=== PATIENT | female | born 1960 | race Caucasian/White ===

== ENCOUNTER 2017-02-22 12:53 | Inpatient (IN) | payer BC ==
[~2017-02-22] VITALS: Ht 162.5 cm; Wt 103.0 kg
[~2017-02-22 12:53] MED LIST: ANAPROX DS550 MG PO; B121000 MCG/2 IM; CARAFATE1 G1 PO; HYDROCODONE BIT1 T11 PO; IBU-8800 MG PO; LEVAQUIN250 MG PO; MEDROL DOSEPAK4 MG PO; MOTRIN800 MG PO; Motrin,Rufen800 MG PO; NORCO 325 MG-51 TAB PO; NORTRIPTYLINE H10 MG PO; PREDNISONE20 M1 PO; PREVACID30 M1 PO; PREVACID30 MG PO; PRILOSEC10 MG PO; PROAIR HFA8.5 GM INH; PROTONIX40 MG PO; PYRIDIUM200 MG PO; SKELAXIN800 MG PO; TRAMADOL HCL50 MG PO; ULTRAM50 MG PO; VICODIN 500 MG-1 TAB PO; WELLBUTRIN SR150 MG PO; WELLBUTRIN75 MG PO; ZITHROMAX250 MG PO; ZOFRAN4 MG PO; Zofran4 MG PO
[2017-02-22 13:08] VITALS: BP 144/91
[2017-02-22] MEDS ORDERED: LORAZEPAM0.5 MG PO (13:09)
[2017-02-22 13:35] VITALS: BP 125/58
[2017-02-22 13:45] LABS: BASO % 0.3 % (0.0-1.0); EOS # 0.1 10*3/uL (0.0-0.4); EOS % 1.1 % (1.0-4.0); HEMATOCRIT 40.2 % (37.0-47.0); HEMOGLOBIN 12.7 g/dl (12.0-16.0); LYMPH # 1.3 10*3/uL (1.3-4.4); LYMPH % 16.7 % (27.0-41.0); MEAN CELL VOLUME 79.9 fl (81.0-99.0); MEAN CORPUSCULAR HGB 25.2 pg (27.0-31.0); MEAN CORPUSCULAR HGB CONC 31.6 g/dl (33.0-37.0); MEAN PLATELET VOLUME 10.5 fl (9.6-12.3); MONO # 0.5 10*3/uL (0.1-1.0); NEUT # 5.6 10*3/uL (2.3-7.9); NEUT % 74.5 % (47.0-73.0); PLATELET COUNT AUTOMATED 272 10*3/uL (130-400); RED BLOOD COUNT 5.03 10*6/uL (4.10-5.10); RED CELL DISTRI WIDTH 15.6 % (0-14.5); WHITE BLOOD COUNT 7.5 10*3/uL (4.8-10.8)
[2017-02-22 13:52] LABS: BILIRUBIN NEGATIVE (NEGATIVE); BLOOD TRACE-INTACT (NEGATIVE); CLARITY SL CLOUDY (CLEAR); COLOR YELLOW (YELLOW); GLUCOSE NEGATIVE (NEGATIVE); KETONE NEGATIVE (NEGATIVE); LEUKO ESTERASE NEGATIVE (NEGATIVE); NITRITE NEGATIVE (NEGATIVE); PROTEIN NEGATIVE (NEGATIVE)
[2017-02-22 13:54] VITALS: BP 126/81
[2017-02-22 13:59] LABS: ALBUMIN 3.5 gm/dl (3.1-4.5); ALKALINE PHOSPHATASE 123 U/L (45-117); BILIRUBIN, TOTAL 0.5 mg/dl (0.2-1.0); BUN 7 mg/dl (7-24); CARBON DIOXIDE 25 mmol/L (21-32); CHLORIDE 108 mmol/L (98-107); EST GLOM FILT AFRICAN AMERICAN > 60 ml/min; GLUCOSE 95 mg/dL (65-99); POTASSIUM 4.3 mmol/L (3.5-5.1); SGOT/AST 16 IU/L (3-35); SGPT/ALT 22 U/L (12-78); SODIUM 143 mmol/L (136-145)
[2017-02-22 14:02] LABS: BACTERIA TRACE; EPITHELIAL CELLS TNTC; URINE REFLEX COMMENT NO (NO)
[2017-02-22 18:11] VITALS: BP 107/53
[2017-02-22] MEDS ORDERED: COLACE100 MG PO (18:24)
[2017-02-22 20:00] VITALS: BP 107/52
[2017-02-23] VITALS: BP 105/57
[2017-02-23 06:49] LABS: BASO % 0.4 % (0.0-1.0); EOS # 0.1 10*3/uL (0.0-0.4); EOS % 1.7 % (1.0-4.0); HEMATOCRIT 37.7 % (37.0-47.0); HEMOGLOBIN 11.5 g/dl (12.0-16.0); LYMPH # 1.4 10*3/uL (1.3-4.4); LYMPH % 28.8 % (27.0-41.0); MEAN CELL VOLUME 81.8 fl (81.0-99.0); MEAN CORPUSCULAR HGB 24.9 pg (27.0-31.0); MEAN CORPUSCULAR HGB CONC 30.5 g/dl (33.0-37.0); MEAN PLATELET VOLUME 10.1 fl (9.6-12.3); MONO # 0.5 10*3/uL (0.1-1.0); NEUT # 2.8 10*3/uL (2.3-7.9); NEUT % 58.5 % (47.0-73.0); PLATELET COUNT AUTOMATED 221 10*3/uL (130-400); RED BLOOD COUNT 4.61 10*6/uL (4.10-5.10); RED CELL DISTRI WIDTH 15.7 % (0-14.5); WHITE BLOOD COUNT 4.7 10*3/uL (4.8-10.8)
[2017-02-23 07:13] LABS: ALBUMIN 3.1 gm/dl (3.1-4.5); BUN 8 mg/dl (7-24); CARBON DIOXIDE 26 mmol/L (21-32); CHLORIDE 110 mmol/L (98-107); EST GLOM FILT AFRICAN AMERICAN > 60 ml/min; GLUCOSE 85 mg/dL (65-99); MAGNESIUM 2.3 mg/dL (1.5-2.1); POTASSIUM 3.8 mmol/L (3.5-5.1); SGOT/AST 11 IU/L (3-35); SGPT/ALT 19 U/L (12-78); SODIUM 145 mmol/L (136-145)
[2017-02-23 07:23] LABS: ALKALINE PHOSPHATASE 107 U/L (45-117); BILIRUBIN, TOTAL 0.6 mg/dl (0.2-1.0); THYROID STIM HORMONE (HS) 0.843 uIU/ml (0.358-4.75); TOTAL PROTEIN 6.4 gm/dL (6.4-8.2)
[2017-02-23 07:24] LABS: PROTHROMBIN TIME 10.1 SECONDS (9.0-12.4)
[2017-02-23 07:36] LABS: FOLIC ACID 12.22 ng/mL (>5.38)
[2017-02-23 08:31] VITALS: BP 102/52
[2017-02-23 12:07] VITALS: BP 106/62
[2017-02-23 16:00] VITALS: BP 122/78
[2017-02-23 20:00] VITALS: BP 118/56
[2017-02-24] VITALS: BP 133/83
[2017-02-24 06:28] LABS: BASO % 0.4 % (0.0-1.0); EOS # 0.1 10*3/uL (0.0-0.4); EOS % 1.6 % (1.0-4.0); HEMATOCRIT 38.9 % (37.0-47.0); HEMOGLOBIN 12.1 g/dl (12.0-16.0); LYMPH # 1.6 10*3/uL (1.3-4.4); MEAN CELL VOLUME 80.2 fl (81.0-99.0); MEAN CORPUSCULAR HGB 24.9 pg (27.0-31.0); MEAN CORPUSCULAR HGB CONC 31.1 g/dl (33.0-37.0); MEAN PLATELET VOLUME 10.3 fl (9.6-12.3); MONO # 0.4 10*3/uL (0.1-1.0); MONO % 7.6 % (3.0-9.0); NEUT % 59.2 % (47.0-73.0); PLATELET COUNT AUTOMATED 236 10*3/uL (130-400); RED BLOOD COUNT 4.85 10*6/uL (4.10-5.10); RED CELL DISTRI WIDTH 15.5 % (0-14.5)
[2017-02-24 08:00] VITALS: BP 122/90
== END 2017-02-24 15:51 | disposition short-term general hospital (02) | DRG 390 ==
LOC: ED 12:53 → EDHOLD 17:07 → 4E 17:27
PROVIDERS: Internal Medicine Hospice and Palliative Medicine; Physician Assistant
DX: K56.60 Unspecified intestinal obstruction (principal); E87.8 Other disorders of electrolyte and fluid balance, not elsewhere classified; R31.29 Other microscopic hematuria; F41.9 Anxiety disorder, unspecified; F32.9 Major depressive disorder, single episode, unspecified; E53.8 Deficiency of other specified B group vitamins; K21.9 Gastro-esophageal reflux disease without esophagitis; Z90.49 Acquired absence of other specified parts of digestive tract; Z90.710 Acquired absence of both cervix and uterus; Z98.51 Tubal ligation status; Z79.899 Other long term (current) drug therapy

== ENCOUNTER 2018-10-24 14:17 | Emergency (ER) | payer BC ==
[~2018-10-24] VITALS: Ht 162.5 cm; Wt 101.6 kg
[~2018-10-24 14:17] MED LIST changes: +COLACE100 MG PO; +LORAZEPAM0.5 MG PO
[2018-10-24 15:04] LABS: BASO % 0.3 % (0.0-1.0); EOS # 0.1 10*3/uL (0.0-0.4); EOS % 0.9 % (1.0-4.0); HEMATOCRIT 44.2 % (37.0-47.0); HEMOGLOBIN 14.3 g/dl (12.0-16.0); LYMPH # 1.9 10*3/uL (1.3-4.4); LYMPH % 21.5 % (27.0-41.0); MEAN CELL VOLUME 82.5 fl (81.0-99.0); MEAN CORPUSCULAR HGB 26.7 pg (27.0-31.0); MEAN CORPUSCULAR HGB CONC 32.4 g/dl (33.0-37.0); MONO # 0.6 10*3/uL (0.1-1.0); MONO % 6.5 % (3.0-9.0); NEUT # 6.3 10*3/uL (2.3-7.9); NEUT % 70.5 % (47.0-73.0); PLATELET COUNT AUTOMATED 245 10*3/uL (130-400); RED BLOOD COUNT 5.36 10*6/uL (4.10-5.10); RED CELL DISTRI WIDTH 15.9 % (0-14.5); WHITE BLOOD COUNT 8.9 10*3/uL (4.8-10.8)
[2018-10-24 15:13] LABS: ACT PARTIAL THROMBO TIME 23.9 SECONDS (20.8-31.5); INTERNATIONAL NORM RATIO 0.9 (2.0-3.5)
[2018-10-24 15:20] LABS: ALBUMIN 3.9 gm/dl (3.1-4.5); ALKALINE PHOSPHATASE 115 U/L (45-117); BUN 18 mg/dl (7-24); CHLORIDE 108 mmol/L (98-107); CREATININE 0.76 mg/dL (0.55-1.02); LIPASE 110 U/L (73-393); SGOT/AST 15 IU/L (3-35); SGPT/ALT 22 U/L (12-78); SODIUM 141 mmol/L (136-145); TOTAL PROTEIN 7.5 gm/dL (6.4-8.2)
[2018-10-24 16:11] LABS: BILIRUBIN NEGATIVE (NEGATIVE); BLOOD NEGATIVE (NEGATIVE); CLARITY CLEAR (CLEAR); COLOR YELLOW (YELLOW); GLUCOSE NEGATIVE (NEGATIVE); KETONE 1+ (NEGATIVE); LEUKO ESTERASE NEGATIVE (NEGATIVE); NITRITE NEGATIVE (NEGATIVE); UROBILINOGEN 0.2 E.U./dl (0.2-1.0)
[2018-10-24 16:19] LABS: BACTERIA 2+; RBC 0-2 rbc/hpf (0-2)
== END 2018-10-24 19:13 | disposition short-term general hospital (02) ==
LOC: ED 14:17
PROVIDERS: Physician Assistant
DX: T18.3XXA Foreign body in small intestine, initial encounter (principal); T81.590A Other complications of foreign body accidentally left in body following surgical operation, initial encounter; R11.0 Nausea; R10.13 Epigastric pain; Z79.899 Other long term (current) drug therapy; Z90.710 Acquired absence of both cervix and uterus; Z90.49 Acquired absence of other specified parts of digestive tract; X58.XXXA Exposure to other specified factors, initial encounter; Y93.89 Activity, other specified; Y92.89 Other specified places as the place of occurrence of the external cause; Y99.8 Other external cause status

== ENCOUNTER 2019-01-13 01:44 | Emergency (ER) | payer BC ==
[~2019-01-13] VITALS: Ht 162.5 cm; Wt 95.3 kg
--- NOTE | ~2019-01-13 | EKG ---
[place], [place] ELECTROCARDIOGRAM REPORT NAME: MAXWELL FONTANA UNIT #: [id number] ROOM: DOCTOR: EPIPHANY DRAFT REPORT BIRTHDATE: [birth year] [facility] Test Date: 2019-01-13 Test Time: 02:52:33 Pat Name: MAXWELL FONTANA Department: Room: Gender: F Filament Tester: Elsy Stockton : 1960 Requested By: BRADY MEIER Order Number: [id number] Reading MD: Merlin Molina MD Measurements Intervals [place] Rate: 89 P: 10 SD: 138 QRS: 32 QRSD: 92 T: 50 QT: 369 QTc: 449 Interpretive Statements Sinus rhythm Baseline wander in lead(s) V3,V6 Electronically Signed On 01-15-2019 3:57:55 PST by Merlin Molina MD CM:EKGRPT:ELECTROCARDIOGRAM REPORT [id number] BRADY MEIER MD EPIPHANY DRAFT REPORT BRADY MEIER MD
[2019-01-13] MEDS ORDERED: FEROSUL325 MG PO (02:17)
[2019-01-13] MEDS ORDERED: NAPROXEN500 M1 PO (02:18)
[2019-01-13] MEDS ORDERED: ESCITALOPRAM OX10 MG PO (02:19)
[2019-01-13] MEDS ORDERED: IBU800 M1 PO (02:20)
[2019-01-13 02:21] LABS: BASO % 0.4 % (0.0-1.0); EOS # 0.1 10*3/uL (0.0-0.4); EOS % 1.4 % (1.0-4.0); HEMATOCRIT 41.9 % (37.0-47.0); HEMOGLOBIN 13.8 g/dl (12.0-16.0); LYMPH # 1.7 10*3/uL (1.3-4.4); LYMPH % 17.9 % (27.0-41.0); MEAN CELL VOLUME 86.7 fl (81.0-99.0); MEAN CORPUSCULAR HGB 28.6 pg (27.0-31.0); MEAN CORPUSCULAR HGB CONC 32.9 g/dl (33.0-37.0); MEAN PLATELET VOLUME 9.6 fl (9.6-12.3); MONO # 0.5 10*3/uL (0.1-1.0); MONO % 5.3 % (3.0-9.0); NEUT # 7.1 10*3/uL (2.3-7.9); NEUT % 74.7 % (47.0-73.0); PLATELET COUNT AUTOMATED 264 10*3/uL (130-400); RED BLOOD COUNT 4.83 10*6/uL (4.10-5.10); RED CELL DISTRI WIDTH 14.8 % (0-14.5); WHITE BLOOD COUNT 9.5 10*3/uL (4.8-10.8)
[2019-01-13 02:55] LABS: ALBUMIN 3.4 gm/dl (3.1-4.5); ALKALINE PHOSPHATASE 114 U/L (45-117); BUN 15 mg/dl (7-24); CHLORIDE 111 mmol/L (98-107); CREATININE 0.91 mg/dL (0.55-1.02); LIPASE 77 U/L (73-393); POTASSIUM 3.8 mmol/L (3.5-5.1); SGOT/AST 15 IU/L (3-35); SGPT/ALT 29 U/L (12-78); SODIUM 144 mmol/L (136-145); TOTAL PROTEIN 7.4 gm/dL (6.4-8.2); TROPONIN I < 0.015 ng/ml (<0.045)
[2019-01-13 03:37] LABS: BILIRUBIN NEGATIVE (NEGATIVE); BLOOD NEGATIVE (NEGATIVE); CLARITY SL CLOUDY (CLEAR); COLOR YELLOW (YELLOW); GLUCOSE NEGATIVE (NEGATIVE); KETONE NEGATIVE (NEGATIVE); LEUKO ESTERASE NEGATIVE (NEGATIVE); NITRITE NEGATIVE (NEGATIVE); PH 5.5 (5.0-9.0); SPECIFIC GRAVITY >= 1.030 (1.005-1.030); UROBILINOGEN 0.2 E.U./dl (0.2-1.0)
[2019-01-13 03:42] LABS: EPITHELIAL CELLS TNTC
[2019-01-13 03:43] LABS: BACTERIA 1+; WBC 0-2 wbc/hpf (0-5)
== END 2019-01-13 07:21 | disposition short-term general hospital (02) ==
LOC: ED 01:44
PROVIDERS: Emergency Medicine Emergency Medical Services
DX: K56.600 Partial intestinal obstruction, unspecified as to cause (principal); Z79.899 Other long term (current) drug therapy

== ENCOUNTER 2019-03-23 18:51 | Emergency (ER) | payer BC ==
[~2019-03-23] VITALS: Ht 162.5 cm; Wt 97.5 kg
[~2019-03-23 18:51] MED LIST changes: +ESCITALOPRAM OX10 MG PO; +FEROSUL325 MG PO; +IBU800 M1 PO; +NAPROXEN500 M1 PO
[2019-03-23 19:29] LABS: BILIRUBIN NEGATIVE (NEGATIVE); BLOOD 1+ (NEGATIVE); CLARITY CLEAR (CLEAR); COLOR YELLOW (YELLOW); GLUCOSE NEGATIVE (NEGATIVE); KETONE NEGATIVE (NEGATIVE); LEUKO ESTERASE NEGATIVE (NEGATIVE); NITRITE NEGATIVE (NEGATIVE); SPECIFIC GRAVITY >= 1.030 (1.005-1.030); UROBILINOGEN 0.2 E.U./dl (0.2-1.0)
[2019-03-23 19:36] LABS: BACTERIA 1+; MUCOUS 1+
[2019-03-23 19:37] LABS: BASO # 0.1 10*3/uL (0.0-0.1); BASO % 0.4 % (0.0-1.0); EOS # 0.1 10*3/uL (0.0-0.4); EOS % 0.6 % (1.0-4.0); HEMATOCRIT 43.2 % (37.0-47.0); HEMOGLOBIN 13.8 g/dl (12.0-16.0); LYMPH # 2.2 10*3/uL (1.3-4.4); LYMPH % 17.9 % (27.0-41.0); MEAN CELL VOLUME 87.8 fl (81.0-99.0); MEAN CORPUSCULAR HGB CONC 31.9 g/dl (33.0-37.0); MEAN PLATELET VOLUME 10.2 fl (9.6-12.3); MONO # 0.9 10*3/uL (0.1-1.0); MONO % 6.8 % (3.0-9.0); NEUT # 9.2 10*3/uL (2.3-7.9); PLATELET COUNT AUTOMATED 297 10*3/uL (130-400); RED BLOOD COUNT 4.92 10*6/uL (4.10-5.10); RED CELL DISTRI WIDTH 14.3 % (0-14.5); WHITE BLOOD COUNT 12.4 10*3/uL (4.8-10.8)
[2019-03-23 19:48] LABS: ACT PARTIAL THROMBO TIME 21.9 SECONDS (20.0-32.1); INTERNATIONAL NORM RATIO 0.9 (2.0-3.5)
[2019-03-23 19:51] LABS: ALKALINE PHOSPHATASE 112 U/L (45-117); BUN 9 mg/dl (7-24); CHLORIDE 110 mmol/L (98-107); CREATININE 0.89 mg/dL (0.55-1.02); LIPASE 56 U/L (73-393); POTASSIUM 3.8 mmol/L (3.5-5.1); SGOT/AST 20 IU/L (3-35); SGPT/ALT 50 U/L (12-78); SODIUM 142 mmol/L (136-145); TOTAL PROTEIN 7.5 gm/dL (6.4-8.2)
== END 2019-03-24 03:14 | disposition short-term general hospital (02) ==
LOC: ED 18:51
PROVIDERS: Nurse Practitioner Family
DX: K56.609 Unspecified intestinal obstruction, unspecified as to partial versus complete obstruction (principal); K21.9 Gastro-esophageal reflux disease without esophagitis; Z79.899 Other long term (current) drug therapy

== ENCOUNTER → 2020-10-30 | Outpatient (CLI) | payer BC | END | disposition home or self-care (01) | LOC: COVID19 10:55 | PROVIDERS: ATTEND Physician Assistant Medical | DX: U07.1 COVID-19 (principal); R43.0 Anosmia ==

== ENCOUNTER 2022-01-18 11:16 | Emergency (ER) | payer BC ==
[~2022-01-18] VITALS: Ht 162.5 cm; Wt 93.4 kg
[2022-01-18 12:18] LABS: BASO % 0.4 % (0.0-1.0); EOS % 0.7 % (1.0-4.0); HEMATOCRIT 45.2 % (37.0-47.0); LYMPH # 1.4 10*3/uL (1.3-4.4); LYMPH % 24.3 % (27.0-41.0); MEAN CELL VOLUME 79.7 fl (81.0-99.0); MEAN CORPUSCULAR HGB 25.6 pg (27.0-31.0); MEAN CORPUSCULAR HGB CONC 32.1 g/dl (33.0-37.0); MEAN PLATELET VOLUME 10.1 fl (9.6-12.3); MONO # 0.5 10*3/uL (0.1-1.0); MONO % 8.2 % (3.0-9.0); NEUT # 3.8 10*3/uL (2.3-7.9); PLATELET COUNT AUTOMATED 260 10*3/uL (130-400); RED BLOOD COUNT 5.67 10*6/uL (4.10-5.10); RED CELL DISTRI WIDTH 15.5 % (0-14.5); WHITE BLOOD COUNT 5.7 10*3/uL (4.8-10.8)
[2022-01-18 12:34] LABS: ALKALINE PHOSPHATASE 108 U/L (45-117); BUN 11 mg/dl (7-24); CHLORIDE 106 mmol/L (98-107); CREATININE 0.81 mg/dL (0.55-1.02); LIPASE 242 U/L (73-393); POTASSIUM 3.6 mmol/L (3.5-5.1); SGOT/AST 28 IU/L (3-35); SGPT/ALT 46 U/L (12-78); SODIUM 137 mmol/L (136-145); TOTAL PROTEIN 7.7 gm/dL (6.4-8.2)
[2022-01-18] MEDS ORDERED: ZOFRAN4 MG PO (15:40)
[2022-01-18 15:54] LABS: BILIRUBIN Negative (Negative); BLOOD Negative (Negative); CLARITY Clear (Clear); COLOR Yellow (Yellow); GLUCOSE Negative (Negative); KETONE 1+ (Negative); LEUKO ESTERASE Trace (Negative); NITRITE Negative (Negative); PH 5.5 (4.5-8.0); UROBILINOGEN 0.2 E.U./dl (0.0-1.0)
[2022-01-18 16:11] LABS: BACTERIA TRACE; EPITHELIAL CELLS 0-2; RBC 0-2 rbc/hpf (0-2)
== END 2022-01-18 15:01 | disposition home or self-care (01) ==
LOC: ED 11:16
PROVIDERS: Emergency Medicine
DX: R19.7 Diarrhea, unspecified (principal); R11.2 Nausea with vomiting, unspecified; Z79.899 Other long term (current) drug therapy; Z90.710 Acquired absence of both cervix and uterus; Z90.49 Acquired absence of other specified parts of digestive tract; Z98.51 Tubal ligation status; Z98.890 Other specified postprocedural states